=== PATIENT | male | born 2005 | race Caucasian/White ===

== ENCOUNTER → 2024-01-28 | Outpatient (CLI) | payer OTHER ==
[~2024-01-28] MED LIST: ISOVUE-370 76% 100ML VIAL As Ordered ONE
== END ==
LOC: M RAD 07:27
PROVIDERS: ATTEND Physician Assistant
DX: R10.827 Generalized rebound abdominal tenderness (principal)

== ENCOUNTER 2024-02-20 15:43 | Emergency (ER) | payer OTHER ==
[~2024-02-20] VITALS: Ht 172.7 cm; Wt 87.4 kg
[2024-02-20 18:52] VITALS: BP 145/69; TEMP 96.9; O2SAT 99
== END 2024-02-20 19:05 | disposition home or self-care (01) ==
LOC: M ED 15:43
DX: K29.70 Gastritis, unspecified, without bleeding (principal); M94.0 Chondrocostal junction syndrome [Tietze]